=== PATIENT | female | born 2000 | race Caucasian/White ===

== ENCOUNTER 2024-01-08 12:38 | Emergency (ER) | payer OTHER ==
[~2024-01-08] VITALS: Ht 154.9 cm; Wt 52.2 kg
[2024-01-08 12:58] VITALS: BP 98/59; PULSE 64; RESP 18; TEMP 98.5; O2SAT 98
[2024-01-08 13:59] LABS: APPEARANCE,URINE CLEAR (CLEAR); BILIRUBIN,URINE NEGATIVE (NEGATIVE); BLOOD, URINE NEGATIVE (NEGATIVE); COLOR,URINE YELLOW (YELLOW); LEUKOCYTE ESTERASE ,URINE NEGATIVE (NEGATIVE); NITRITE, URINE NEGATIVE (NEGATIVE); PH,URINE 6.5 (5.0-9.0); PROTEIN,URINE NEGATIVE (NEGATIVE); UGLUCOSE NEGATIVE (NEGATIVE); UROBILINOGEN,URINE 0.2 EU/dL (0.2 - 1)
[2024-01-08] MEDS ORDERED: KETOROLAC 30 MG/ML VIAL ONE (14:47)
[2024-01-08] MEDS: KETOROLAC 30 MG/ML VIAL IM ONE (14:50)
[2024-01-08 15:45] VITALS: BP 100/64; PULSE 67; RESP 18; TEMP 98.6; O2SAT 98
[2024-01-08 15:53] LABS: BASOPHILS % (AUTO) 0.6 % (0.0-2.0); EOSINOPHILS # (AUTO) 0.1 K/uL (0-0.4); HEMATOCRIT 34.3 % (36-48); HEMOGLOBIN 11.4 g/dL (12.0-16.0); LYMPHOCYTES # (AUTO) 2.1 K/uL (2.5-16.5); MEAN CORPUSCULAR HEMOGLOBIN 29 pg (27-31); MEAN CORPUSCULAR HGB CONC 33 g/dL (33-37); MEAN CORPUSCULAR VOLUME 86.3 fL (80-94); MONOCYTES # (AUTO) 0.6 K/uL (0.8-1.0); MONOCYTES % (AUTO) 9.9 % (1.7-9.3); NEUTROPHILS # (AUTO) 2.8 K/uL (1.8-7.7); NEUTROPHILS % (AUTO) 50.5 % (42.2-75.2); PLATELET COUNT (AUTO) 208 K/uL (140-450); RED BLOOD CELL COUNT(AUTO) 3.98 MIL/uL (4.20-5.40); RED CELL DISTRIBUTION WIDTH 15.6 % (11.6-13.7); WHITE BLOOD COUNT (AUTO) 5.6 K/uL (4.8-10.8)
[2024-01-08 16:14] LABS: CALCIUM 9.1 mg/dL (8.5-10.1); CARBON DIOXIDE 23.8 mmol/L (21-32); CREATININE 0.8 mg/dL (0.6-1.3); POTASSIUM 3.8 mmol/L (3.5-5.1)
[2024-01-08] MEDS ORDERED: NAPR-337 PO (16:54)
== END 2024-01-08 17:12 | disposition home or self-care (01) ==
LOC: MED 12:38
DX: R10.2 Pelvic and perineal pain (principal); Z79.899 Other long term (current) drug therapy
CPT/HCPCS: 36415; 76830; 80048; 81003; 81025; 85025; 96372; 99285; J1885

== ENCOUNTER 2024-01-21 21:31 | Emergency (ER) | payer OTHER ==
[~2024-01-21] VITALS: Ht 154.9 cm; Wt 52.2 kg
[~2024-01-21 21:31] MED LIST: NAPR-337 PO
[2024-01-21 21:47] VITALS: BP 119/75; PULSE 83; RESP 16; TEMP 97.7; O2SAT 99
[2024-01-21 21:50] VITALS: BP 119/75; PULSE 83; RESP 16; TEMP 97.7; O2SAT 99
[2024-01-21 22:37] LABS: APPEARANCE,URINE CLEAR (CLEAR); BILIRUBIN,URINE NEGATIVE (NEGATIVE); BLOOD, URINE NEGATIVE (NEGATIVE); COLOR,URINE YELLOW (YELLOW); LEUKOCYTE ESTERASE ,URINE NEGATIVE (NEGATIVE); NITRITE, URINE NEGATIVE (NEGATIVE); PROTEIN,URINE NEGATIVE (NEGATIVE); UGLUCOSE NEGATIVE (NEGATIVE); UROBILINOGEN,URINE 0.2 EU/dL (0.2 - 1)
[2024-01-22] MEDS ORDERED: METR-435 PO (00:17)
[2024-01-22] MEDS ORDERED: metroNIDAZOLE 500 MG TAB ONE (00:22)
[2024-01-22] MEDS: metroNIDAZOLE 250 MG TAB PO ONE (00:24)
== END 2024-01-22 00:25 | disposition home or self-care (01) ==
LOC: MED 21:31
DX: N76.0 Acute vaginitis (principal); B96.89 Other specified bacterial agents as the cause of diseases classified elsewhere; F41.9 Anxiety disorder, unspecified; F32.A Depression, unspecified; Z88.8 Allergy status to other drugs, medicaments and biological substances; Z79.899 Other long term (current) drug therapy
CPT/HCPCS: 81003; 81025; 87210; 87491; 99284